=== PATIENT | female | born 1985 | race Caucasian/White ===

== ENCOUNTER → 2016-05-20 | Outpatient (CLI) | payer OTHER ==
[~2016-05-20] MED LIST: ALPR.25 PO; OXYC1TAB63 PO; PROZ40CA PO
[2016-05-20 08:59] LABS: APTT (PATIENT) 26.6 SEC (24.3-30.1); PROTHROMBIN TIME - PATIENT 10.9 SEC (9.8-11.6)
[2016-05-20 09:00] LABS: HEMATOCRIT 34.6 % (35.0-46.0); MEAN CELL VOLUME 88.6 FL (80.0-100.0); MEAN CORPUSCULAR HEMOGLOBIN 29.9 PG (27.0-34.0); MEAN CORPUSCULAR HGB CONC 33.7 % (32.0-36.0); PLATELET COUNT 254 TH/MM3 (150-450); REVIEW FLAG FINAL
[2016-05-20 09:24] LABS: WESTERGREN SEDIMENTATION RATE 13 mm/hr (0-20)
[2016-05-20 09:32] LABS: ALKALINE PHOSPHATASE 51 U/L (45-117); ALT (GPT) 23 U/L (10-53); ANION GAP 10 MEQ/L (5-15); AST (GOT) 18 U/L (15-37); BICARBONATE 25.1 MEQ/L (21.0-32.0); BLOOD UREA NITROGEN 11 MG/DL (7-18); CHLORIDE 102 MEQ/L (98-107); CREATINE KINASE 94 U/L (26-192); FREE T4 0.92 NG/DL (0.76-1.46); GLOMERULAR FILTRATION RATE 83 ML/MIN (>89); GLUCOSE,FASTING 99 MG/DL (74-99); POTASSIUM 3.9 MEQ/L (3.5-5.1); SODIUM (NA) 137 MEQ/L (136-145); TOTAL BILIRUBIN ADULT 0.5 MG/DL (0.2-1.0)
[2016-05-21 13:45] LABS: ANA SCREEN POS (NEG)
[2016-05-22 03:49] LABS: THROMBIN TIME FOR LA ND sec (13-19)
[2016-05-23 03:52] LABS: BETA2 GLYCOPROTEIN I AB IGA LESS THAN 9.0 SAU (< OR = 20)
[2016-05-23 15:53] LABS: PHOS SERINE AB IGA LESS THAN 20 U/mL (()); PHOS SERINE AB IGG LESS THAN 10 U/mL (()); PHOS SERINE AB IGM LESS THAN 25 U/mL (())
== END ==
LOC: CLAB 05-13 09:35
PROVIDERS: ATTEND Family Medicine
DX: D68.9 Coagulation defect, unspecified (principal); E55.9 Vitamin D deficiency, unspecified; R53.83 Other fatigue
CPT/HCPCS: 36415; 80053; 81241; 82306; 82550; 83090; 84439; 84443; 85027; 85240; 85300; 85303; 85306; 85610; 85613; 85652; 85730; 86038; 86039; 86146; 86147; 86148

== ENCOUNTER 2016-05-27 05:14 | Observation (INO) | payer OTHER ==
[~2016-05-27] VITALS: Ht 167.6 cm; Wt 74.7 kg
[~2016-05-27 05:14] MED LIST changes: -OXYC1TAB63 PO
[2016-05-27] MEDS ORDERED: ceFAZolin 1,000 MG/NS 100 ML IV SCH ×2 (05:45)
[2016-05-27] MEDS ORDERED: INSULIN HUMAN REGULAR 1,000 UNITS/10 ML VIAL SQ PRN (05:45)
[2016-05-27] MEDS ORDERED: METOPROLOL TARTRATE 25 MG TAB PO PRN (05:45)
[2016-05-27 05:53] VITALS: BP 117/74; PULSE 62; RESP 16; TEMP 97.9; O2SAT 100
[2016-05-27] MEDS ORDERED: SODIUM CHLORID 0.9% 500 ML IV SCH (06:00)
[2016-05-27] MEDS ORDERED: LACTATED RINGER'S 1000 ML IV SCH (06:00)
[2016-05-27 06:03] LABS: AUTOMATED NEUTROPHIL # 3.9 TH/MM3 (1.8-7.7); BASOPHIL # 0.1 TH/MM3 (0-0.2); BASOPHIL % 0.8 % (0.0-2.0); EOSINOPHIL # 0.1 TH/MM3 (0-0.4); EOSINOPHIL % 1.4 % (0.0-4.0); HEMATOCRIT 34.1 % (35.0-46.0); HEMO FLAGS DIFF FINAL; LYMPH % 31.2 % (9.0-44.0); LYMPHOCYTE # 2.1 TH/MM3 (1.0-4.8); MEAN CORPUSCULAR HEMOGLOBIN 29.4 PG (27.0-34.0); MONO % 8.7 % (0.0-8.0); NEUT % 57.9 % (16.0-70.0); PLATELET COUNT 228 TH/MM3 (150-450); RED BLOOD COUNT 3.83 MIL/MM3 (4.00-5.30); RED CELL DISTRIBUTION WIDTH 14.1 % (11.6-17.2); WHITE BLOOD COUNT 6.8 TH/MM3 (4.0-11.0)
[2016-05-27] MEDS ORDERED: SODIUM CHLORIDE 0.9% INJ 100 ML ONE (06:13)
[2016-05-27] MEDS ORDERED: CLINDAMYCIN PHOS 600 MG/4 ML VIAL ONE (06:13)
[2016-05-27 06:18] LABS: BETA HCG QUANT LESS THAN 1 MIU/ML (0-5)
[2016-05-27] MEDS ORDERED: CLINDAMYCIN 600 MG/NS 100 ML IV SCH ×2 (06:30)
[2016-05-27] MEDS ORDERED: ACETAMINOPHEN 1000 MG/100 ML VIAL IV ONE (06:54)
[2016-05-27] MEDS ORDERED: BUPIVACAINE HCL PF 0.25% 30 ML VIAL ONE (06:59)
[2016-05-27] MEDS ORDERED: BUPIVACAINE/EPINEPHRINE 0.25% 50 ML VIAL ONE (07:00)
[2016-05-27] MEDS ORDERED: MIDAZOLAM HCL 2 MG/2 ML VIAL ONE (07:14)
[2016-05-27] MEDS ORDERED: APREPITANT 40 MG CAP ONE (07:14)
[2016-05-27] MEDS ORDERED: DEXAMETHASONE SOD PHOS 4 MG/ML VIAL ONE (07:14)
[2016-05-27] MEDS ORDERED: FAMOTIDINE 20 MG/2 ML VIAL ONE (07:14)
[2016-05-27] MEDS ORDERED: DO NOT ADM ANY ANTICOAGULANT DRUGS XX PRN (09:00)
[2016-05-27] MEDS ORDERED: fentaNYL CITRATE 250 MCG/5 ML AMP ONE (09:02)
[2016-05-27] MEDS ORDERED: PROPOFOL 200 MG/20 ML AMP IV ONE (09:10)
[2016-05-27] MEDS ORDERED: ONDANSETRON HCL 4 MG/2 ML VIAL IV PUSH ONE (09:10)
[2016-05-27] MEDS ORDERED: NEOSTIGMINE 3 MG/3 ML SYR IV ONE (09:10)
[2016-05-27] MEDS ORDERED: ONDANSETRON HCL 4 MG/2 ML VIAL IVP PRN (09:15)
[2016-05-27] MEDS ORDERED: IBUPROFEN 600 MG TAB PO PRN (09:15)
[2016-05-27] MEDS ORDERED: SODIUM CHLORIDE 0.9% FLUSH 5 ML FLUSH FLUSH PRN (09:15)
[2016-05-27] MEDS ORDERED: HYDROmorphone HCL PF 1 MG/ML VIAL IVP PRN (09:15)
[2016-05-27] MEDS ORDERED: oxyCODONE/ACETAMINOPHEN 5 MG/325 MG TAB PO PRN (09:15)
[2016-05-27] MEDS ORDERED: diphenhydrAMINE HCL 25 MG CAP PO PRN (09:15)
--- NOTE | 2016-05-27 09:18 | PD.OP ---
Operative Report Date of Surgery: May 27, 2016 Preoperative Diagnosis: (1) Pelvic pain Postoperative Diagnosis: (1) Pelvic pain Procedure: Operative laparoscopy with removal of cervical stump Anesthesia: general wiseman Surgeon: Luke Paniagua Event Host(s): Luke Casanova MD May 27, 2016 09:18
[2016-05-27] MEDS ORDERED: *MEPERIDINE 25 MG INJ VIAL PERIprocedural Use ONLY ONE (09:21)
--- NOTE | 2016-05-27 09:38 | MP ---
cc: ZACK PANIAGUA M.D. DATE OF SURGERY: 05/27/2016 PROCEDURE Operative laparoscopy with fulguration of endometriosis and a removal of the cervical stump PREOPERATIVE DIAGNOSIS Pelvic pain, dyspareunia. POSTOPERATIVE DIAGNOSIS Pelvic pain, dyspareunia. SURGEON Dr. Zack Paniagua ESTIMATED BLOOD LOSS 100 cc COMPLICATIONS None FINDINGS The patient had diffuse endometriosis in the anterior and posterior cul-de-sac. She also had a cervical stump which was normal length and no adhesions. ANESTHESIA General, Dr. Lawton PROCEDURE IN DETAIL After informed consent, the patient taken to the operating room where she was placed under general anesthesia and placed in the supine position, legs in the Yellow-fin stirrups. The abdomen, perineum and vagina prepped and draped in normal sterile fashion. Gonzalez catheter was placed under sterile technique and a speculum was placed in the vagina. The cervix grasped with a single-tooth tenaculum. An acorn uterine manipulator was placed. Gloves were changed and a 5 mm infraumbilical incision was then made after injection with quarter percent Marcaine with epinephrine. We had trouble entering the peritoneal cavity. Suprapubically, a Veress needle was placed. We insufflated the abdomen and the umbilical incision was entered with the peritoneum tented up. At this point, we entered a 5 mm trocar suprapubically. The upper and lower abdomen were normal except for endometriosis in the anterior and posterior cul-de-sacs. There were probably 10 lesions which were fulgurated with monopolar cautery. We used monopolar cautery then to dissect the bladder down slightly along with the posterior cul-de-sac. Good hemostasis was achieved. At this point, we removed all instruments and CO2 from the abdomen, closed her incisions at the skin, the 5 mm incisions. We then went below, position was changed with the legs in the Yellow-fin stirrups. Speculum was placed in the vagina. [employer] uterine manipulator was removed. Again, an incision anteriorly. We dissected down to the fascia and dissected all the way up to our incision from above until we entered the abdomen. The posterior cul-de-sac was entered easily. Once the cervical stump was isolated, we clamped, cut and tied the uterosacral and cardinal ligaments bilaterally. There were two clamps placed on either side of the cervix that were remove. Once the uterus was amputated, good hemostasis was achieved. The vaginal cuff was then closed with multiple [id number] sutures of Vicryl suture. Good hemostasis was achieved. The urine remained clear throughout the entire case. The patient was taken to the recovery room in stable condition after being awakened. All lap and instrument counts were reported as correct. MD SAMANTHA Stern/JAZMÍN /9:21 AM /2:37 PM
[2016-05-27] MEDS ORDERED: *HYDROmorphone PF 1 MG VIAL PERIprocedural Use ONLY ONE ×3 (09:42→11:39)
[2016-05-27 12:35] VITALS: BP 127/81; PULSE 64; RESP 18; TEMP 96.8; O2SAT 97
[2016-05-27] MEDS: KETOROLAC TROMETHAMINE 30 MG/ML (IVP) VIAL IVP PRN (12:58)
[2016-05-27 15:57] VITALS: BP 115/72; PULSE 74; RESP 20; TEMP 97.2; O2SAT 100
[2016-05-27] MEDS: oxyCODONE/ACETAMINOPHEN 5 MG/325 MG TAB PO PRN ×2 (17:06→22:06)
[2016-05-27 20:00] VITALS: BP 115/76; PULSE 86; RESP 17; TEMP 96.9; O2SAT 96
[2016-05-27] MEDS: SODIUM CHLORIDE 0.9% FLUSH 5 ML FLUSH FLUSH SCH (21:00)
[2016-05-28] VITALS: BP 101/61; PULSE 61; RESP 18; TEMP 97.3; O2SAT 98
[2016-05-28] MEDS: KETOROLAC TROMETHAMINE 30 MG/ML (IVP) VIAL IVP PRN ×2 (01:55→10:03)
[2016-05-28 04:00] VITALS: BP 91/62; PULSE 75; RESP 17; TEMP 97.3; O2SAT 97
[2016-05-28] MEDS: oxyCODONE/ACETAMINOPHEN 5 MG/325 MG TAB PO PRN (04:04)
[2016-05-28 07:26] LABS: AUTOMATED NEUTROPHIL # 10.8 TH/MM3 (1.8-7.7); BASOPHIL % 0.2 % (0.0-2.0); EOSINOPHIL % 0.1 % (0.0-4.0); HEMATOCRIT 30.7 % (35.0-46.0); HEMO FLAGS DIFF FINAL; LYMPH % 11.1 % (9.0-44.0); LYMPHOCYTE # 1.5 TH/MM3 (1.0-4.8); MEAN CELL VOLUME 88.6 FL (80.0-100.0); MEAN CORPUSCULAR HEMOGLOBIN 29.9 PG (27.0-34.0); MEAN CORPUSCULAR HGB CONC 33.7 % (32.0-36.0); MONO % 7.5 % (0.0-8.0); NEUT % 81.1 % (16.0-70.0); PLATELET COUNT 195 TH/MM3 (150-450); RED BLOOD COUNT 3.47 MIL/MM3 (4.00-5.30); WHITE BLOOD COUNT 13.3 TH/MM3 (4.0-11.0)
[2016-05-28 08:00] VITALS: BP 108/65; PULSE 74; RESP 20; TEMP 96.9; O2SAT 98
--- NOTE | 2016-05-28 08:46 | HHI.PR ---
Subjective Remarks Doing well, pain is well controlled, eating well. Objective Vital Signs Vital Signs Date Time Temp Pulse Resp B/P Pulse Ox O2 Delivery O2 Flow Rate FiO2 05/28/16 08:00 96.9 74 20 108/65 98 05/28/16 05:04 16 05/28/16 04:00 97.3 75 17 91/62 97 05/28/16 02:55 16 05/28/16 00:00 97.3 61 18 101/61 98 05/27/16 20:00 96.9 86 17 115/76 96 05/27/16 15:57 97.2 74 20 115/72 100 05/27/16 12:35 96.8 64 18 127/81 97 05/27/16 12:30 76 16 119/71 95 Room Air 05/27/16 10:36 61 16 122/77 97 Room Air 05/27/16 09:30 68 16 136/84 99 Room Air 05/27/16 09:15 80 16 131/86 99 Room Air 05/27/16 09:00 75 16 139/82 99 Room Air 05/27/16 08:57 97.8 80 16 135/83 99 Room Air I/O 05/27/16 05/27/16 05/27/16 05/28/16 05/28/16 05/28/16 07:00 15:00 23:00 07:00 15:00 23:00 Intake Total 1720 ml 720 ml 240 ml Output Total 350 ml 2550 ml 600 ml Balance 1370 ml -1830 ml -360 ml Intake Oral 720 ml 720 ml 240 ml IV Total 100 ml Other 900 ml Output Urine Total 0 ml 2550 ml 600 ml Estimated Blood Loss 100 ml Other 250 ml Bladder Scan Volume Amount 3 ml # Sanitary Pads 1 Pads 1 Pads Result Diagram: 05/28/16 0637 Objective Remarks Chest is clear, regular rate and rhythm. Abdomen is soft and non-distended. Incision is clean and dry.no vaginal bleeding Ext no CCE. A/P Assessment and Plan Post Op Day 1 Doing well Home today and return to office in two weeks. Luke Paniagua MD May 28, 2016 08:46
[2016-05-28] MEDS ORDERED: OXYC1TAB63 PO (08:48)
--- NOTE | 2016-05-28 08:48 | HHI.DCPOC ---
Discharge Care Plan Diagnosis: (1) Pelvic pain Report Symptoms to Your Doctor -Temperate above 100.5 degrees -Redness, of incision or excessive or foul smelling drainage -Unusual pain or calf pain -Increased vaginal bleeding -Painful or difficulty urinating -Feelings of extreme sadness or anxiety after 2 weeks Goals to Promote Your Health * To prevent worsening of your condition and complications * To maintain your health at the optimal level Directions to Meet Your Goals Take your medications as prescribed Follow your dietary instruction Follow activity as directed Ensure plenty of rest for recovery Drink fluids for hydration Keep your appointments as scheduled Take your immunizations and boosters as scheduled If your symptoms worsen call your PCP, if no PCP go to Urgent Care Center or Emergency Room Smoking is Dangerous to Your Health. Avoid second hand smoke Call the 24-hour crisis hotline for domestic abuse at Luke Paniagua MD May 28, 2016 08:48
--- NOTE | 2016-05-28 08:53 | HHI.DS ---
Discharge Summary Admission Date May 27, 2016 at 09:16 Discharge Date: May 28, 2016 Admitting Diagnosis pelvic pain (1) Pelvic pain Diagnosis: Principal Procedures operative LSC and trachelectomy Brief History pt for oper lsc and cervical stump removal CBC/BMP: 05/28/16 0637 Significant Findings Laboratory Tests Test 05/27/16 05/28/16 05:45 06:37 Red Blood Count 3.83 MIL/MM3 3.47 MIL/MM3 (4.00-5.30) (4.00-5.30) Hemoglobin 11.3 GM/DL 10.4 GM/DL (11.6-15.3) (11.6-15.3) Hematocrit 34.1 % 30.7 % (35.0-46.0) (35.0-46.0) Monocytes (%) (Auto) 8.7 % (0.0-8.0) White Blood Count 13.3 TH/MM3 (4.0-11.0) Neutrophils (%) (Auto) 81.1 % (16.0-70.0) Neutrophils # (Auto) 10.8 TH/MM3 (1.8-7.7) Monocytes # (Auto) 1.0 TH/MM3 (0-0.9) Hospital Course patient had surgery and was dc home Pt Condition on Discharge: Good Discharge Disposition: Discharge Home Discharge Instructions DIET: Follow Instructions for: As Tolerated, No Restrictions Activities you can perform: Regular-No Restrictions, Pelvic Rest Activities to Avoid: Driving for 24 hrs Follow up Referrals: [facility] - 2 Weeks @ [facility] with Luke Paniagua MD New Medications: Oxycodone-Acetaminophen (Oxycodone-Acetaminophen) 5-325 mg Tab 1 TAB PO Q4H PRN PAIN SCALE 1 TO 5 #30 TAB Continued Medications: Alprazolam (Xanax) 0.25 Mg Tab 0.25 MG PO Q4H PRN ANXIETY Ref 0 TAB Fluoxetine (Prozac) 40 Mg Cap 40 MG PO DAILY #30 Ref 0 CAP Luke Paniagua MD May 28, 2016 08:53
[2016-05-28] MEDS: SODIUM CHLORIDE 0.9% FLUSH 5 ML FLUSH FLUSH SCH (09:31)
[2016-05-28 11:31] VITALS: BP 111/69; PULSE 68; RESP 20; TEMP 97; O2SAT 98
--- NOTE | 2016-06-10 18:50 | HHI.HP ---
HPI Date Seen: May 27, 2016 Time Seen: 07:20 Travel History International Travel<30 Days: No Contact w/Intl Traveler<30Days: No Known Affected Area: No History of Present Illness HPI patient has chronic pelvic pain in lower abdomen and cervix History Past Medical History Medical History: Denies Significant Hx Past Surgical History Narrative Surgical myomectomy and hysterectomy Family History Family History: Negative Social History Alcohol Use: No Tobacco Use: No Substance Abuse: No Allergies-Medications (Allergen,Severity, Reaction): Coded Allergies: Penicillin (Verified Allergy, Unknown, 05/27/16) A CHILD Home Meds Active Scripts Oxycodone-Acetaminophen 5-325 mg Tab1 Tab PO Q4H PRN (PAIN SCALE 1 TO 5) #30 TAB Prov:Luke Paniagua MD 05/28/16 Reported Medications Alprazolam (Xanax)0.25 Mg Tab0.25 Mg PO Q4H PRN (ANXIETY) Ref 0 05/26/16 Fluoxetine (Prozac)40 Mg Cap40 Mg PO DAILY #30 CAP Ref 0 05/26/16 Review of Systems Except as stated in HPI: all other systems reviewed are Neg Physical Exam Narrative GENERAL: Well-nourished, well-developed patient. SKIN: Warm and dry. HEAD: Normocephalic and atraumatic. EYES: No scleral icterus. No injection or drainage. ENT: No nasal drainage noted. Mucous membranes pink. Airway patent. NECK: Supple, trachea midline. No JVD. CARDIOVASCULAR: Regular rate and rhythm without murmurs, gallops, or rubs. RESPIRATORY: Breath sounds equal bilaterally. No accessory muscle use. BREASTS: Bilateral exam showed no masses , no retractions, no nipple discharge. ABDOMEN/GI: Abdomen soft, non-tender, bowel sounds present, no rebound, no guarding Gravid to [-] weeks size Fundal Height: [-] GENITOURINARY: External Genitalia: intact and normal in appearance BUS glands: [-] Cervix: [-] Dilatation: [-] Effacement: [-] Station: [-] Presentation: [-] Membranes: [intact or ruptured] Uterine Contractions: [-] FHT's: Category: [-] Baseline: [-] Reactive: [-] Variability: [-] Decels: [-] EXTREMITIES: No cyanosis or edema. BACK: Nontender without obvious deformity. No CVA tenderness. NEUROLOGICAL: Awake and alert. Motor and sensory grossly within normal limits. Five out of 5 muscle strength in all muscle groups. Normal speech. Data Data Vital Signs Reviewed: Yes Assessment/Plan Problem List: (1) Pelvic pain Assessment and Plan for oper lsc and cervical stump removal Luke Paniagua MD Jun 10, 2016 18:50
== END 2016-05-28 12:46 | disposition home or self-care (01) ==
LOC: HSDC 05:14 → HSDI 09:16 → HOCA 12:35
PROVIDERS: ADMIT Obstetrics & Gynecology; ATTEND Obstetrics & Gynecology
DX: R10.2 Pelvic and perineal pain (principal); N88.0 Leukoplakia of cervix uteri
CPT/HCPCS: 00840; 57550; 58662; 84702; 85025; 86850; 86900; 86901; 88307; G0378; J0131; J1100; J1170; J1885; J2175; J2250; J2405; J2710; J3010; J7120; J8501; 88305

== ENCOUNTER → 2016-06-18 | Outpatient (CLI) | payer OTHER ==
[~2016-06-18] MED LIST changes: +OXYC1TAB63 PO
== END ==
LOC: CLAB 08:00
PROVIDERS: ATTEND Obstetrics & Gynecology
DX: N39.0 Urinary tract infection, site not specified (principal)
CPT/HCPCS: 87086

== ENCOUNTER → 2016-10-02 | Outpatient (CLI) | payer OTHER ==
[2016-10-02 11:38] LABS: URIC ACID 5.2 MG/DL (2.6-6.0)
[2016-10-02 11:39] LABS: RHEUMATOID FACTOR TRIGGER LESS THAN 10.0 IU/ML (0.0-14.9)
[2016-10-02 12:09] LABS: BLOOD, URINE NEG (NEG); GLUCOSE,URINE NEG (NEG); KETONE, URINE NEG (NEG); NITRITE,URINE NEG (NEG); SQUAMOUS EPITHELIAL CELL URINE 1 /hpf (0-5); URINE COLOR LIGHT-YELLOW (YELLW/STRAW)
[2016-10-09 07:50] LABS: SM ANTIBODY <1.0 NEG AI (<1.0 NEGATIVE); SM/RNP ANTIBODY <1.0 NEG AI (<1.0 NEGATIVE)
== END ==
LOC: CLAB 10:21
PROVIDERS: ATTEND Allergy & Immunology
DX: R76.8 Other specified abnormal immunological findings in serum (principal)
CPT/HCPCS: 36415; 81001; 84550; 85652; 86140; 86160; 86200; 86225; 86235; 86255; 86430; 86812

== ENCOUNTER → 2017-02-17 | Outpatient (CLI) | payer OTHER ==
[~2017-02-17] MED LIST changes: -ALPR.25 PO; +AZIT250T3 PO; -OXYC1TAB63 PO; -PROZ40CA PO
[2017-02-17 08:13] LABS: BLOOD, URINE NEG (NEG); GLUCOSE,URINE NEG (NEG); KETONE, URINE NEG (NEG); NITRITE,URINE NEG (NEG); SQUAMOUS EPITHELIAL CELL URINE 3 /hpf (0-5); URINE COLOR LIGHT-YELLOW (YELLW/STRAW)
[2017-02-17 08:34] LABS: FOLLICLE STIMULATING HORMONE 9.5 mIU/mL; LUTEINIZING HORMONE 12.6 mIU/mL
[2017-02-20 19:54] LABS: PROGESTERONE 1.7 ng/mL
== END ==
LOC: CLAB 07:38
PROVIDERS: ATTEND Family Medicine
DX: E28.310 Symptomatic premature menopause (principal); R30.0 Dysuria
CPT/HCPCS: 36415; 81001; 82670; 83001; 83002; 84144; 84403